=== PATIENT | male | born 1990 | race African-American/Black ===

== ENCOUNTER 2019-12-29 15:51 | Emergency (ER) | payer SELFPAY ==
[2019-12-29 15:52] VITALS: PULSE 0; BMI 40.6
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
[2019-12-29 16:27] LABS: ABG PCO2 20.1 mmHg (35-45); Alveolar-Arterial Oxygen Gradi 393.4 mmHg (5-10); Arterial Blood Gas Hematocrit 33.2 % (42-52); Blood Gas Allen Test Pos; Blood Gas Sample Site Brachial, right; Blood Gas Sample Type Arterial; Carboxyhemoglobin 0.3 %THgb (0.4-20.1); HCO3 ABG 2.7 mmol/L (22-26); HGB O2 Sat 97.2 % (95-100); Ionized Calcium Level - ABG 1.2 mmol/L (1.1-1.4); Oxygen Device AMBU; Oxygen Saturation ABG 98.5; Potassium Level - ABG 6.6 mmol/L (3.5-5.0); Total Hemoglobin 10.8 g/dL (14-18)
[2019-12-29 16:29] LABS: ABG PH Result 6.74 (7.35-7.45)
--- NOTE | 2019-12-29 17:25 | PC.NURSE ---
CPR in progress upon arrival to [facility]. Pt became unresponsive at 1542. Please refer to code sheet for further information. Time of @ [address] Miranda
== END 2019-12-29 17:51 | disposition expired ==
LOC: ER 17:14
PROVIDERS: Emergency Provider Emergency Medicine
DX: I46.9 Cardiac arrest, cause unspecified (principal); T79.4XXA Traumatic shock, initial encounter; S31.109A Unspecified open wound of abdominal wall, unspecified quadrant without penetration into peritoneal cavity, initial encounter; W34.00XA Accidental discharge from unspecified firearms or gun, initial encounter
CPT/HCPCS: 12345; 32551; 36556; 36600; 36680; 80051; 82810; 83986; 86850; 86900; 86920; 96365; 99281; 99285; C1751; J0171; P9016